=== PATIENT | female | born 1975 | race Caucasian/White ===

== ENCOUNTER 2021-07-25 21:47 | Emergency (ER) | payer BC, MEDICAID ==
[~2021-07-25] VITALS: Ht 160 cm; Wt 68.3 kg
[~2021-07-25 21:47] MED LIST: B6; BUSP5TAB3 PO; CEPH-357 PO; DESV50TA PO; DESV50TA9; ESTR1.743; GABA-341 PO; HYDR-569 PO; IBUP-1573 PO; NORCO10T PO; ONDA8TAB9 PO; PHEN-786 PO
[2021-07-26 01:49] LABS: URINE HCG NEGATIVE (NEG)
[2021-07-26 02:23] LABS: CLARITY,URINE SLIGHTLY CLOUDY (Clear); COLOR,URINE ORANGE (Yellow)
[2021-07-26 02:36] LABS: UA COLLECTION TYPE CLN CATCH MIDSTREAM
[2021-07-26 02:57] LABS: BACTERIA,URINE 2+ /HPF (Neg); SQUAMOUS EPITHELIAL CELL,UR FEW /LPF (FEW); WBC CLUMPS,URINE MODERATE /HPF (NEGATIVE); WBC,URINE TNTC /HPF (0-4)
[2021-07-26] MEDS ORDERED: CEPH-585 PO (03:26)
[2021-07-26] MEDS ORDERED: cephalexin 250mg capsule PO ONE ×2 (03:30→04:10)
[2021-07-26 04:22] VITALS: BP 125/87
== END 2021-07-26 04:24 | disposition home or self-care (01) ==
LOC: ER 21:48
DX: N39.0 Urinary tract infection, site not specified (principal); R30.9 Painful micturition, unspecified; G89.29 Other chronic pain; F41.9 Anxiety disorder, unspecified; F32.9 Major depressive disorder, single episode, unspecified; Z90.710 Acquired absence of both cervix and uterus; Z72.89 Other problems related to lifestyle; Z88.8 Allergy status to other drugs, medicaments and biological substances; Z79.2 Long term (current) use of antibiotics; Z79.899 Other long term (current) drug therapy
CPT/HCPCS: 81001; 81025; 87077; 87088; 87186; 99283